=== PATIENT | male | born 1935 | race Two or more races ===

== ENCOUNTER 2018-09-22 08:29 | Outpatient (CLI) | payer OTHER ==
[~2018-09-22 08:29] MED LIST: ALLOPURINOL100 MG; ASA81 MG; DIOVAN HCT 160-1 TAB
== END 2018-09-22 08:36 | disposition home or self-care (01) ==
LOC: RX STUDY 08:29
DX: K21.9 Gastro-esophageal reflux disease without esophagitis (principal); K44.9 Diaphragmatic hernia without obstruction or gangrene